=== PATIENT | male | born 1955 | race Caucasian/White ===

== ENCOUNTER → 2017-05-22 | Outpatient (CLI) | payer BC ==
[~2017-05-22] MED LIST: ATENOLOL50 MG PO; FLOMAX0.4 MG PO; MELOXICAM7.5 MG PO; METFORMIN HCL500 MG PO; PROTONIX40 MG PO; RAMIPRIL10 MG PO; TRAMADOL HCL50 MG PO
== END | disposition home or self-care (01) ==
LOC: CDC 08:12
DX: Z01.810 Encounter for preprocedural cardiovascular examination (principal); N20.0 Calculus of kidney
CPT/HCPCS: 93000

== ENCOUNTER → 2017-06-01 | Outpatient (CLI) | payer BC ==
[~2017-06-01] VITALS: Ht 190.5 cm; Wt 108.0 kg
[~2017-06-01] MED LIST changes: +CIPRO250 MG PO; +CIPRO500 MG PO; +DOCUSATE SODIU100 MG PO; +PERCOCET 5/31 TABLET PO
[2017-06-01 09:33] LABS: PTT 25.9 SEC (25-37)
== END | disposition home or self-care (01) ==
LOC: RAD 04-24 09:00 → OPR 04-24 09:00 → EDSTATUS 09:00
PROVIDERS: Urology
PROC: 0T9130Z Drainage of Left Kidney with Drainage Device, Percutaneous Approach (ICD-10-PCS; principal; 2017-06-01)
DX: Z46.82 Encounter for fitting and adjustment of non-vascular catheter (principal); N20.0 Calculus of kidney; I10 Essential (primary) hypertension; E11.9 Type 2 diabetes mellitus without complications; Z79.84 Long term (current) use of oral hypoglycemic drugs; Z88.0 Allergy status to penicillin; Z88.2 Allergy status to sulfonamides; Z80.6 Family history of leukemia; Z82.49 Family history of ischemic heart disease and other diseases of the circulatory system
CPT/HCPCS: 50432; 82948; 85610; 85730; C1766; C1769; C1894; J2250; J2310; J2405; J3010

== ENCOUNTER 2017-06-03 05:37 | Day surgery (SDC) | payer BC ==
[~2017-06-03] VITALS: Ht 190.5 cm; Wt 106.0 kg
[~2017-06-03 05:37] MED LIST changes: -CIPRO500 MG PO; -DOCUSATE SODIU100 MG PO; -PERCOCET 5/31 TABLET PO
[2017-06-03 06:11] VITALS: BP 179/90
[2017-06-03] MEDS ORDERED: CIPRO500 MG PO (11:03)
[2017-06-03] MEDS ORDERED: PERCOCET 5/31 TABLET PO (11:03)
[2017-06-03] MEDS ORDERED: DOCUSATE SODIU100 MG PO (11:03)
[2017-06-03 14:16] LABS: HEMATOCRIT 40.4 % (38.0-50.0); HEMOGLOBIN 13.9 G/DL (12.5-16.6); MCH 29.4 PG (29.0-34.0); MCHC 34.4 G/DL (30.0-36.0); MCV 85.6 FL (86-99); PLATELET COUNT 161 K/uL (156-360); RBC DIS.WIDTH-CV 12.8 % (11.8-14.6); RBC DIS.WIDTH-SD 39.6 % (39-53); RED BLOOD COUNT 4.72 M/uL (4.00-5.50); WHITE BLOOD COUNT 14.6 K/uL (4.1-10.2)
[2017-06-03 14:45] LABS: CHLORIDE 104 MEQ/L (99-109); GFR ESTIMATE (CALCULATED) > 59 mL/min/ (58.99-99999); GLUCOSE 154 mg/dL (70-99); POTASSIUM 3.7 MEQ/L (3.7-5.4); SODIUM 139 MEQ/L (136-147); UREA NITROGEN (BUN) 20 mg/dL (9-23)
[2017-06-03 15:07] VITALS: BP 116/56
[2017-06-03 19:43] VITALS: BP 123/62
[2017-06-04 00:47] VITALS: BP 130/69
[2017-06-04 04:31] VITALS: BP 126/65; BP 127/62
[2017-06-04 06:41] LABS: HEMATOCRIT 37.9 % (38.0-50.0); HEMOGLOBIN 13.1 G/DL (12.5-16.6); MCH 29.7 PG (29.0-34.0); MCHC 34.6 G/DL (30.0-36.0); MCV 85.9 FL (86-99); PLATELET COUNT 185 K/uL (156-360); RBC DIS.WIDTH-CV 12.9 % (11.8-14.6); RBC DIS.WIDTH-SD 40.2 % (39-53); RED BLOOD COUNT 4.41 M/uL (4.00-5.50); WHITE BLOOD COUNT 19.6 K/uL (4.1-10.2)
[2017-06-04 07:13] VITALS: BP 123/64
[2017-06-05] MEDS ORDERED: MOBIC7.5 MG PO (11:31)
[2017-06-05] MEDS ORDERED: LIPITOR10 MG PO (11:32)
[2017-06-05] MEDS ORDERED: ONDANSETRON ODT4 MG PO (11:32)
== END 2017-06-04 11:02 | disposition home or self-care (01) ==
LOC: SDC 05:37 → 2SOUTH 11:00 → ENRESERV 11:02 → 2EAST 13:12 → SDC 16:14 → ENPENDDIS 06-04 → 2EAST 06-04 11:02
PROVIDERS: Urology
DX: N20.0 Calculus of kidney (principal); E78.00 Pure hypercholesterolemia, unspecified; I10 Essential (primary) hypertension; K21.9 Gastro-esophageal reflux disease without esophagitis; E11.9 Type 2 diabetes mellitus without complications; Z88.0 Allergy status to penicillin; Z88.2 Allergy status to sulfonamides; Z79.84 Long term (current) use of oral hypoglycemic drugs
CPT/HCPCS: 74018; 76000; 80048; 82365 90; 82948; 85027; C1726; C1758; C1769; C2625; G0378; J0131; J0690; J1100; J1170; J1580; J2250; J2405; J2550; J2765; J3010; J7050; J7120; Q0175; S0020

== ENCOUNTER 2017-06-05 08:36 | Observation (INO) | payer BC ==
[~2017-06-05] VITALS: Ht 190.5 cm; Wt 113.7 kg
[~2017-06-05 08:36] MED LIST changes: +CIPRO500 MG PO; +DOCUSATE SODIU100 MG PO; +PERCOCET 5/31 TABLET PO
[2017-06-05 09:23] LABS: HEMOGLOBIN 13.6 G/DL (12.5-16.6); MCHC 34.9 G/DL (30.0-36.0); MCV 86.1 FL (86-99); PLATELET COUNT 204 K/uL (156-360); RBC DIS.WIDTH-CV 13.2 % (11.8-14.6); RBC DIS.WIDTH-SD 40.7 % (39-53); RED BLOOD COUNT 4.53 M/uL (4.00-5.50)
[2017-06-05 09:44] LABS: APPEARANCE CLOUDY ((CLEAR)); BILIRUBIN NEGATIVE; BLOOD LARGE; COLOR YELLOW ((YELLOW)); GLUCOSE (STRIP) NEGATIVE; KETONES NEGATIVE; LEUKOCYTES SMALL; NITRITE NEGATIVE; PROTEIN (STRIP) 100; SPECIFIC GRAVITY 1.019 (1.000-1.030); UROBILINOGEN 0.2 MG/DL (0.2-1.0)
[2017-06-05 09:49] LABS: CHLORIDE 99 mEq/L (99-109); POTASSIUM 4.3 mEq/L (3.7-5.4); SODIUM 138 mEq/L (136-147)
[2017-06-05 09:50] LABS: GLUCOSE 166 mg/dL (70-99)
[2017-06-05 09:54] LABS: CREATININE 1.2 mg/dL (0.6-1.3); GFR ESTIMATE (CALCULATED) > 59 mL/min/ (58.99-99999)
[2017-06-05 09:55] LABS: UREA NITROGEN (BUN) 25 mg/dL (9-23)
[2017-06-05 10:16] LABS: RED BLOOD CELLS TNTC /HPF (0-5); UCUL ADDED? YES
[2017-06-05] MEDS ORDERED: MOBIC7.5 MG PO (11:31)
[2017-06-05] MEDS ORDERED: ONDANSETRON ODT4 MG PO (11:32)
[2017-06-05] MEDS ORDERED: LIPITOR10 MG PO (11:32)
[2017-06-05 13:51] VITALS: BP 153/70
[2017-06-05 19:30] VITALS: BP 134/65
[2017-06-06] VITALS: BP 130/64
[2017-06-06 04:00] VITALS: BP 134/64
[2017-06-06 06:07] LABS: HEMATOCRIT 36.5 % (38.0-50.0); HEMOGLOBIN 12.4 G/DL (12.5-16.6); MCH 29.8 PG (29.0-34.0); MCV 87.7 FL (86-99); PLATELET COUNT 171 K/uL (156-360); RBC DIS.WIDTH-CV 13.3 % (11.8-14.6); RBC DIS.WIDTH-SD 42.8 % (39-53); RED BLOOD COUNT 4.16 M/uL (4.00-5.50); WHITE BLOOD COUNT 14.7 K/uL (4.1-10.2)
[2017-06-06 06:29] LABS: CHLORIDE 103 MEQ/L (99-109); GFR ESTIMATE (CALCULATED) > 59 mL/min/ (58.99-99999); GLUCOSE 150 mg/dL (70-99); POTASSIUM 4.1 MEQ/L (3.7-5.4); SODIUM 139 MEQ/L (136-147); UREA NITROGEN (BUN) 21 mg/dL (9-23)
[2017-06-06 07:32] VITALS: BP 134/69
== END 2017-06-06 11:37 | disposition home or self-care (01) ==
LOC: EME 08:36 → EDOF 11:31 → ENRESERV 11:39 → 5WEST 13:18
PROVIDERS: Emergency Medicine; Hospitalist
PROC: 0T9100Z Drainage of Left Kidney with Drainage Device, Open Approach (ICD-10-PCS; principal; 2017-06-05)
DX: N13.2 Hydronephrosis with renal and ureteral calculous obstruction (principal); I10 Essential (primary) hypertension; E11.9 Type 2 diabetes mellitus without complications; Z79.84 Long term (current) use of oral hypoglycemic drugs; E78.5 Hyperlipidemia, unspecified; Z87.442 Personal history of urinary calculi; K21.9 Gastro-esophageal reflux disease without esophagitis; Z86.19 Personal history of other infectious and parasitic diseases; Z88.0 Allergy status to penicillin; Z88.2 Allergy status to sulfonamides
CPT/HCPCS: 50433; 74176; 80048; 81003; 82948; 85027; 87086; 99281; 99285; C1729; C1769; G0378; J0696; J0744; J1644; J1885; J2405; J3010; J7030

== ENCOUNTER 2017-06-16 06:55 | Day surgery (SDC) | payer BC ==
[~2017-06-16] VITALS: Ht 190.5 cm; Wt 108.4 kg
[~2017-06-16 06:55] MED LIST changes: +COLACE100 MG PO; +LIPITOR10 MG PO; +MOBIC7.5 MG PO; +ONDANSETRON ODT4 MG PO; +ULTRAM50 MG PO
[2017-06-16 08:02] LABS: APPEARANCE SL.HAZY ((CLEAR)); BILIRUBIN NEGATIVE; BLOOD MODERATE; COLOR YELLOW ((YELLOW)); GLUCOSE (STRIP) NEGATIVE; KETONES NEGATIVE; LEUKOCYTES SMALL; NITRITE NEGATIVE; PROTEIN (STRIP) 30; SPECIFIC GRAVITY 1.018 (1.000-1.030); UROBILINOGEN 0.2 MG/DL (0.2-1.0)
[2017-06-16 08:13] LABS: BACTERIA RARE /HPF; EPITHELIAL CELLS NONE SEEN /HPF; MUCUS TRACE /LPF; RED BLOOD CELLS TNTC /HPF (0-5)
[2017-06-16 08:27] VITALS: BP 135/77
[2017-06-16 14:02] VITALS: BP 143/64
[2017-06-16 15:15] VITALS: BP 134/70
== END 2017-06-16 15:25 | disposition home or self-care (01) ==
LOC: SDC 06:55
PROVIDERS: Urology
DX: N20.2 Calculus of kidney with calculus of ureter (principal); I10 Essential (primary) hypertension; E78.5 Hyperlipidemia, unspecified; K21.9 Gastro-esophageal reflux disease without esophagitis; E11.9 Type 2 diabetes mellitus without complications; M19.90 Unspecified osteoarthritis, unspecified site; Z79.84 Long term (current) use of oral hypoglycemic drugs; Z82.49 Family history of ischemic heart disease and other diseases of the circulatory system; Z80.6 Family history of leukemia
CPT/HCPCS: 74420; 81003; 82365 90; 82948; C1769; C1894; C2625; J0696; J1885; J2250; J2405; J3010; Q0175

== ENCOUNTER 2017-07-14 06:54 | Day surgery (SDC) | payer BC ==
[~2017-07-14] VITALS: Ht 193 cm; Wt 107.9 kg
[2017-07-14 08:20] VITALS: BP 133/70
[2017-07-14] MEDS ORDERED: POTASSIUM (08:29)
[2017-07-14 12:44] VITALS: BP 137/82
[2017-07-14 13:46] VITALS: BP 130/63
== END 2017-07-14 14:05 | disposition home or self-care (01) ==
LOC: SDC 06:54
PROVIDERS: Urology
PROC: 0TC18ZZ Extirpation of Matter from Left Kidney, Via Natural or Artificial Opening Endoscopic (ICD-10-PCS; principal; 2017-07-14)
PROC: 0TF48ZZ Fragmentation in Left Kidney Pelvis, Via Natural or Artificial Opening Endoscopic (ICD-10-PCS; principal; 2017-07-14)
PROC: 0T778DZ Dilation of Left Ureter with Intraluminal Device, Via Natural or Artificial Opening Endoscopic (ICD-10-PCS; principal; 2017-07-14)
DX: N20.0 Calculus of kidney (principal); E78.00 Pure hypercholesterolemia, unspecified; I10 Essential (primary) hypertension; E11.9 Type 2 diabetes mellitus without complications; Z79.84 Long term (current) use of oral hypoglycemic drugs
CPT/HCPCS: 74018; 82365 90; 82948; C1894; C2625; J1100; J1335; J1885; J2250; J2405; J3010; J7050; J7643

== ENCOUNTER 2017-07-31 05:38 | Day surgery (SDC) | payer BC ==
[~2017-07-31] VITALS: Ht 190.5 cm; Wt 108.8 kg
[~2017-07-31 05:38] MED LIST changes: +POTASSIUM
[2017-07-31 06:46] VITALS: BP 137/76
[2017-07-31 10:20] VITALS: BP 141/80
[2017-07-31 10:57] VITALS: BP 127/71
== END 2017-07-31 11:00 | disposition home or self-care (01) ==
LOC: SDC 05:38
PROVIDERS: Urology
PROC: 0TF48ZZ Fragmentation in Left Kidney Pelvis, Via Natural or Artificial Opening Endoscopic (ICD-10-PCS; principal; 2017-07-31)
PROC: 0TC78ZZ Extirpation of Matter from Left Ureter, Via Natural or Artificial Opening Endoscopic (ICD-10-PCS; principal; 2017-07-31)
PROC: 0T778DZ Dilation of Left Ureter with Intraluminal Device, Via Natural or Artificial Opening Endoscopic (ICD-10-PCS; principal; 2017-07-31)
DX: N20.2 Calculus of kidney with calculus of ureter (principal); I10 Essential (primary) hypertension; K21.9 Gastro-esophageal reflux disease without esophagitis; E11.9 Type 2 diabetes mellitus without complications; R94.31 Abnormal electrocardiogram [ECG] [EKG]; Z88.0 Allergy status to penicillin; Z88.2 Allergy status to sulfonamides; Z79.84 Long term (current) use of oral hypoglycemic drugs
CPT/HCPCS: 74420; 82948; C2625; J0330; J0696; J1100; J2250; J2405; J3010; Q0175